=== PATIENT | male | born 1945 | race Caucasian/White ===

== ENCOUNTER 2017-10-08 07:01 | Day surgery (SDC) | payer MEDICARE ==
[~2017-10-08] VITALS: Ht 175.3 cm; Wt 81.6 kg
[~2017-10-08 07:01] MED LIST: AMLO5 PO; ASPI81CH; ASPI81CH PO; ASPI81EC PO; CHOL10002 PO; FISH1000 PO; GLUCOSAMINE CH1 EAC1 PO; HYDACE5325 PO; LISI20 PO; LISI5; LOVA20 PO; METF500 PO; MULVITMINF PO; Multiple Vitam1 EAC1 PO; POTA10T; POTASSIUM GLUCO90 MG PO; POTCHL20ER PO; POTCIT5 PO; RED YEAST RICE600 MG PO; RXHYD5325 PO; STATIN PO; TRAM50 PO; [UNRECOGNIZED DRUG - OTHER] PO
[2017-10-08] MEDS ORDERED: TRAM50 PO (16:54)
== END 2017-10-08 18:30 | disposition home or self-care (01) ==
LOC: ORSCMMR 07:01 → ORD 11:00 → SURS 16:06 → ORSCMMR 18:30
PROVIDERS: Orthopaedic Surgery
PROC: 0SB20ZZ Excision of Lumbar Vertebral Disc, Open Approach (ICD-10-PCS; principal; 2017-10-08 11:15)
PROC: 01NB0ZZ Release Lumbar Nerve, Open Approach (ICD-10-PCS; principal; 2017-10-08 11:15)
DX: M51.26 Other intervertebral disc displacement, lumbar region (principal); M47.26 Other spondylosis with radiculopathy, lumbar region; I10 Essential (primary) hypertension; E11.9 Type 2 diabetes mellitus without complications; E03.9 Hypothyroidism, unspecified; E78.00 Pure hypercholesterolemia, unspecified; F17.210 Nicotine dependence, cigarettes, uncomplicated; Z79.899 Other long term (current) drug therapy
CPT/HCPCS: 82947; 88304; J0171; J0690; J1100; J1170; J2250; J2405; J2710; J3010; J3370; J7120

== ENCOUNTER 2018-06-04 09:14 | Emergency (ER) | payer MEDICARE ==
[~2018-06-04] VITALS: Ht 175.3 cm; Wt 81.7 kg
[~2018-06-04 09:14] MED LIST changes: +METF500C
[2018-06-04 09:55] LABS: BASOPHILS ABSOLUTE AUTO 0.07 K/mm3 (0.00-0.23); BASOPHILS PERCENT AUTO 1 % (0-2); EOSINOPHILS ABSOLUTE AUTO 0.49 K/mm3 (0.00-0.68); EOSINOPHILS PERCENT AUTO 6 % (0-6); Hematocrit 43.1 % (37.0-53.0); Hemoglobin 14.5 g/dL (13.5-17.5); IMMATURE GRAN ABSOLUTE AUTO 0.02 K/mm3 (0.00-0.10); IMMATURE GRAN PERCENT AUTO 0 % (0-1); LYMPHOCYTES ABSOLUTE AUTO 1.93 K/mm3 (0.84-5.20); LYMPHOCYTES PERCENT AUTO 23 % (21-46); MONOCYTES ABSOLUTE AUTO 0.92 K/mm3 (0.16-1.47); MONOCYTES PERCENT AUTO 11 % (4-13); Mean Corpuscular HGB 31.7 pg (26.0-34.0); Mean Corpuscular HGB Conc 33.6 g/dL (31.5-36.5); Mean Corpuscular Volume 94 fL (80-100); NEUTROPHILS ABSOLUTE AUTO 4.96 K/mm3 (1.96-9.15); NEUTROPHILS PERCENT AUTO 59 % (41-73); Platelet Count 291 K/mm3 (150-400); RDW Coefficient Variation 13.3 % (11.7-14.2); RDW Standard Deviation 46.5 fL (35.1-46.3); Red Blood Cell Count 4.57 M/mm3 (4.30-5.90); White Blood Cell Count 8.39 K/mm3 (4.00-11.30)
[2018-06-04 10:15] LABS: Alanine Aminotransfer (ALT/SGP 33 U/L (12-78); Albumin, Blood 3.9 g/dL (3.4-5.0); Alk Phos 68 U/L (50-136); Anion Gap 9 mmol/L (6-16); Aspartate Aminotrans (AST/SGOT 18 U/L (12-37); Bilirubin, Total 0.3 mg/dL (0.1-1.0); Blood Urea Nitrogen 21 mg/dL (8-24); Bun/Creatinine Ratio 27.2 (12.0-20.0); CO2, Blood 26 mmol/L (21-32); Calcium, Blood 8.9 mg/dL (8.5-10.1); Chloride, Blood 102 mmol/L (98-108); Creatinine, Blood 0.77 mg/dL (0.60-1.20); Globulin, Blood 3.8 g/dL (2.2-4.0); Glomerular Filtration Rate >60 (60-); Glucose, Blood 154 mg/dL (70-99); Potassium, Blood 4.1 mmol/L (3.5-5.5); Sodium, Blood 137 mmol/L (136-145); Total Protein, Blood 7.7 g/dL (6.4-8.2); Troponin I <0.015 ng/mL (0.000-0.040)
[2018-07-11] MEDS ORDERED: Centrum Silver1 EAC1 (14:00)
[2018-07-11] MEDS ORDERED: METO25ER (14:01)
== END 2018-06-04 11:18 | disposition left against medical advice (07) ==
LOC: ER 09:14
PROVIDERS: Emergency Medicine
DX: Z53.21 Procedure and treatment not carried out due to patient leaving prior to being seen by health care provider (principal)
CPT/HCPCS: 36415; 71046; 80053; 84484; 85025; 93005; 93010

== ENCOUNTER 2018-07-12 09:26 | Day surgery (SDC) | payer MEDICARE ==
[~2018-07-12 09:26] MED LIST changes: +Centrum Silver1 EAC1; +METO25ER
--- NOTE | 2018-07-12 15:15 | NUR ---
2 CC AIR REMOVED FROM TR BAND AFTER DISCUSSION WITH DR. ELDER. (PT LIVES AN HOUR AWAY AND WANTS TO GET HOME BEFORE DARK.) ADDITIONAL AIR REMOVED FROM BAND. NO BLEEDING AT SITE. PT IS DRESSED FOR DISCHARGE AFTER AMBULATING TO BATHROOM.
--- NOTE | 2018-07-12 15:50 | NUR ---
DISCHARGE INSTRUCTIONS GIVEN WITH VERBAL AND WRITTEN UNDERSTANDING.
--- NOTE | 2018-07-12 16:00 | NUR ---
TR BAND REMOVED. NO BLEEDING AT SITE.SITE CLEANED, CLOTH DOTH, IMMOBILIZER AND SLING APPLIED.
--- NOTE | 2018-07-12 16:15 | NUR ---
DISCHARGED HOME VIA WHEELCHAIR. DRIVING. CD/DISCHARGE INSTRUCTIONS WITH PATIENT. CD SENT VIA MAIL TO [facility]. WILL GO OUT 05/15/19.
== END 2018-07-12 16:34 | disposition home or self-care (01) ==
LOC: MHTC 09:26
DX: I25.10 Atherosclerotic heart disease of native coronary artery without angina pectoris (principal); R00.2 Palpitations; R93.1 Abnormal findings on diagnostic imaging of heart and coronary circulation; R94.31 Abnormal electrocardiogram [ECG] [EKG]; E78.5 Hyperlipidemia, unspecified; E11.9 Type 2 diabetes mellitus without complications; I10 Essential (primary) hypertension; M19.90 Unspecified osteoarthritis, unspecified site; Z79.84 Long term (current) use of oral hypoglycemic drugs; Z79.82 Long term (current) use of aspirin; F17.210 Nicotine dependence, cigarettes, uncomplicated
CPT/HCPCS: 85347; 92978; 93454; 99152; 99153; C1753; C1769; C1887; C1894; J1644; J2250; J3010; J7030; Q9967

== ENCOUNTER 2020-07-12 10:26 | Emergency (ER) | payer MEDICARE ==
[~2020-07-12] VITALS: Ht 175.3 cm; Wt 90.7 kg
[2020-07-12 11:57] LABS: BASOPHILS ABSOLUTE AUTO 0.07 K/mm3 (0.00-0.23); BASOPHILS PERCENT AUTO 1 % (0-2); EOSINOPHILS ABSOLUTE AUTO 0.71 K/mm3 (0.00-0.68); EOSINOPHILS PERCENT AUTO 7 % (0-6); Hematocrit 42.6 % (37.0-53.0); Hemoglobin 14.5 g/dL (13.5-17.5); IMMATURE GRAN ABSOLUTE AUTO 0.02 K/mm3 (0.00-0.10); IMMATURE GRAN PERCENT AUTO 0 % (0-1); LYMPHOCYTES ABSOLUTE AUTO 1.77 K/mm3 (0.84-5.20); LYMPHOCYTES PERCENT AUTO 18 % (21-46); MONOCYTES ABSOLUTE AUTO 1.12 K/mm3 (0.16-1.47); MONOCYTES PERCENT AUTO 12 % (4-13); Mean Corpuscular HGB 30.9 pg (26.0-34.0); Mean Corpuscular Volume 91 fL (80-100); Mean Platelet Volume 8.7 fL (9.1-12.4); NEUTROPHILS ABSOLUTE AUTO 6.02 K/mm3 (1.96-9.15); NEUTROPHILS PERCENT AUTO 62 % (41-73); Platelet Count 326 K/mm3 (150-400); RDW Coefficient Variation 12.7 % (11.7-14.2); RDW Standard Deviation 42.8 fL (35.1-46.3); Red Blood Cell Count 4.69 M/mm3 (4.30-5.90); White Blood Cell Count 9.71 K/mm3 (4.00-11.30)
[2020-07-12 12:25] LABS: Alanine Aminotransfer (ALT/SGP 45 U/L (12-78); Albumin, Blood 3.5 g/dL (3.4-5.0); Albumin/Globulin Ratio 0.7 (0.8-1.8); Alk Phos 81 U/L (50-136); Anion Gap 6 mmol/L (6-16); Aspartate Aminotrans (AST/SGOT 34 U/L (12-37); Bilirubin, Total 0.4 mg/dL (0.1-1.0); Blood Urea Nitrogen 11 mg/dL (8-24); Bun/Creatinine Ratio 18.7 (12.0-20.0); CO2, Blood 27 mmol/L (21-32); Calcium, Blood 9.8 mg/dL (8.5-10.1); Chloride, Blood 100 mmol/L (98-108); Creatinine, Blood 0.59 mg/dL (0.60-1.20); Glomerular Filtration Rate >60 (60-); Glucose, Blood 112 mg/dL (70-99); Potassium, Blood 4.7 mmol/L (3.5-5.5); Sodium, Blood 133 mmol/L (136-145); Total Protein, Blood 8.5 g/dL (6.4-8.2)
[2020-07-12] MEDS ORDERED: COLCHICINE0.6 MG PO (14:29)
[2020-07-12] MEDS ORDERED: INDO50 PO (14:29)
== END 2020-07-12 14:07 | disposition home or self-care (01) ==
LOC: ER 10:26
PROVIDERS: Physician Assistant
DX: M10.9 Gout, unspecified (principal); E11.9 Type 2 diabetes mellitus without complications; I10 Essential (primary) hypertension; E78.00 Pure hypercholesterolemia, unspecified; Z79.899 Other long term (current) drug therapy; Z79.84 Long term (current) use of oral hypoglycemic drugs; Z79.82 Long term (current) use of aspirin
CPT/HCPCS: 36415; 73110; 80053; 83605; 84550; 85025; 85651; 86141; 96374; 99283-25; A9270; J1885

== ENCOUNTER 2021-12-06 08:00 | Day surgery (SDC) | payer MEDICARE ==
[~2021-12-06] VITALS: Ht 175.3 cm; Wt 85.1 kg
[~2021-12-06 08:00] MED LIST changes: +COLCHICINE0.6 MG PO; +INDO50 PO
== END 2021-12-06 10:26 | disposition home or self-care (01) ==
LOC: ORSCSDS 08:00 → ORD 09:00 → ORSCMMR 09:00 → ORSCSDS 09:00
PROVIDERS: Internal Medicine Gastroenterology
PROC: 0DBN8ZX Excision of Sigmoid Colon, Via Natural or Artificial Opening Endoscopic, Diagnostic (ICD-10-PCS; principal; 2021-12-06 09:00)
DX: Z12.11 Encounter for screening for malignant neoplasm of colon (principal); Z86.010 Personal history of colon polyps; Z80.0 Family history of malignant neoplasm of digestive organs; D12.5 Benign neoplasm of sigmoid colon; K64.8 Other hemorrhoids; I25.10 Atherosclerotic heart disease of native coronary artery without angina pectoris; E78.00 Pure hypercholesterolemia, unspecified; Z79.899 Other long term (current) drug therapy; E11.9 Type 2 diabetes mellitus without complications; I10 Essential (primary) hypertension; Z79.84 Long term (current) use of oral hypoglycemic drugs; Z79.01 Long term (current) use of anticoagulants
CPT/HCPCS: 82947; 88305; J2250; J2704; J7120

== ENCOUNTER 2023-01-30 08:23 | Day surgery (SDC) | payer MEDICARE ==
[~2023-01-30] VITALS: Ht 175.3 cm; Wt 91.3 kg
[2023-01-30] MEDS ORDERED: ACTOS15 MG PO (08:54)
[2023-01-30] MEDS ORDERED: GLUCOTROL5 MG (08:55)
--- NOTE | 2023-01-30 09:11 | NUR ---
01/30/23 0911 Rika Dias IN AT 0856 CHATA IN AT [id number]
[2023-01-30 10:00] VITALS: BP 169/78
--- NOTE | 2023-01-30 10:14 | NUR ---
01/30/23 1014 Vijay Holt IV REMOVED. WNL. CANNULA INTACT. ALBA WELL.
== END 2023-01-30 10:24 | disposition home or self-care (01) ==
LOC: ORSCSDS 08:23
PROVIDERS: Student in an Organized Health Care Education/Training Program
PROC: 08RJ3JZ Replacement of Right Lens with Synthetic Substitute, Percutaneous Approach (ICD-10-PCS; principal; 2023-01-30 09:30)
DX: E11.36 Type 2 diabetes mellitus with diabetic cataract (principal); H25.11 Age-related nuclear cataract, right eye; Z96.1 Presence of intraocular lens; Z95.1 Presence of aortocoronary bypass graft; H35.372 Puckering of macula, left eye; H40.003 Preglaucoma, unspecified, bilateral; I25.10 Atherosclerotic heart disease of native coronary artery without angina pectoris; E03.9 Hypothyroidism, unspecified; I10 Essential (primary) hypertension; J44.9 Chronic obstructive pulmonary disease, unspecified; Z79.899 Other long term (current) drug therapy
CPT/HCPCS: 82947; J2250; J7040; V2632

== ENCOUNTER → 2023-05-23 | Outpatient (CLI) | payer MEDICARE ==
[~2023-05-23] MED LIST changes: +ACTOS15 MG PO; +GLUCOTROL5 MG
== END | disposition home or self-care (01) ==
LOC: LAB SHORT 14:27 → LAB 14:27
DX: E11.9 Type 2 diabetes mellitus without complications (principal)
CPT/HCPCS: 82043

== ENCOUNTER → 2024-08-23 | Outpatient (CLI) | payer MEDICARE ==
[2024-08-23 15:47] LABS: Albumin, Blood 3.1 g/dL (3.4-5.0); Albumin/Globulin Ratio 0.9 (0.8-1.8); Bilirubin, Total 0.5 mg/dL (0.1-1.0); Bun/Creatinine Ratio 23.7 (12.0-20.0); Creatinine, Blood 0.59 mg/dL (0.60-1.20); Globulin, Blood 3.4 g/dL (2.2-4.0); Total Protein, Blood 6.5 g/dL (6.4-8.2)
== END | disposition home or self-care (01) ==
LOC: LAB SHORT 13:00
PROVIDERS: Physician Assistant
DX: I50.9 Heart failure, unspecified (principal); L84 Corns and callosities; R60.9 Edema, unspecified
CPT/HCPCS: 80053; 83880

== ENCOUNTER 2024-08-25 17:14 | Inpatient (IN) | payer MEDICARE ==
[~2024-08-25] VITALS: Ht 180.3 cm; Wt 77.8 kg
[2024-08-25 17:48] LABS: BASOPHILS ABSOLUTE AUTO 0.03 K/mm3 (0.00-0.23); BASOPHILS PERCENT AUTO 0 % (0-2); EOSINOPHILS ABSOLUTE AUTO 0.18 K/mm3 (0.00-0.68); EOSINOPHILS PERCENT AUTO 2 % (0-6); Hematocrit 37.1 % (37.0-53.0); Hemoglobin 12.1 g/dL (13.5-17.5); IMMATURE GRAN ABSOLUTE AUTO 0.02 K/mm3 (0.00-0.10); IMMATURE GRAN PERCENT AUTO 0 % (0-1); LYMPHOCYTES ABSOLUTE AUTO 1.56 K/mm3 (0.84-5.20); LYMPHOCYTES PERCENT AUTO 17 % (21-46); MONOCYTES ABSOLUTE AUTO 1.27 K/mm3 (0.16-1.47); MONOCYTES PERCENT AUTO 14 % (4-13); Mean Corpuscular HGB 28.9 pg (26.0-34.0); Mean Corpuscular HGB Conc 32.6 g/dL (31.5-36.5); Mean Corpuscular Volume 89 fL (80-100); Mean Platelet Volume 9.7 fL (9.1-12.4); NEUTROPHILS ABSOLUTE AUTO 6.17 K/mm3 (1.96-9.15); NEUTROPHILS PERCENT AUTO 67 % (41-73); Platelet Count 312 K/mm3 (150-400); RDW Coefficient Variation 16.2 % (11.7-14.2); Red Blood Cell Count 4.18 M/mm3 (4.30-5.90); White Blood Cell Count 9.23 K/mm3 (4.00-11.30)
[2024-08-25 18:29] LABS: Albumin, Blood 3.1 g/dL (3.4-5.0); Albumin/Globulin Ratio 0.9 (0.8-1.8); Bilirubin, Total 0.6 mg/dL (0.1-1.0); Bun/Creatinine Ratio 23.2 (12.0-20.0); Calcium, Blood 8.5 mg/dL (8.5-10.1); Creatinine, Blood 0.69 mg/dL (0.60-1.20); Globulin, Blood 3.5 g/dL (2.2-4.0); Potassium, Blood 3.7 mmol/L (3.5-5.5); Total Protein, Blood 6.6 g/dL (6.4-8.2)
[2024-08-25] MEDS ORDERED: Furosemide 10 MG / ML 2ML Vial IV ONE (19:45)
[2024-08-25 20:29] LABS: Influenza A, PCR NEGATIVE (NEGATIVE); Influenza B, PCR NEGATIVE (NEGATIVE); Resp Syncytial Virus, PCR NEGATIVE (NEGATIVE); SARS-Cov-2 (COVID-19) PCR, MMC NEGATIVE (NEGATIVE)
[2024-08-25 22:22] VITALS: BP 145/90
[2024-08-25] MEDS ORDERED: FLU VACC TS2024-25(6MOS UP)/PF 45 MCG/0.5 ML SYRINGE IM ONE (22:55)
[2024-08-25] MEDS ORDERED: Enoxaparin 40 MG/0.4 ML SYR SC SCH (23:00)
[2024-08-25] MEDS ORDERED: Clopidogrel Bisulfate 300 MG TABLET PO ONE (23:00)
[2024-08-25] MEDS ORDERED: Ondansetron HCl 2 MG / ML 2ML Vial IV PRN (23:00)
--- NOTE | 2024-08-25 23:00 | NUR ---
ASSUMED CARE OF PT AT 2300. PT RESTING IN BED COMFORTABLY. BED IN LOWEST POSITION. CALL LIGHT IN REACH.
[2024-08-25] MEDS ORDERED: FentaNYL Citrate 50 MCG/ML 2 ML Injection IV PRN (23:05)
[2024-08-25] MEDS ORDERED: Melatonin 3 MG Tab PO PRN (23:15)
[2024-08-26] VITALS (12 sets, daily range): BP systolic 119–151; BP diastolic 72–106
[2024-08-26] MEDS ORDERED: Aspirin 81 MG Chew PO SCH
[2024-08-26] MEDS ORDERED: Atorvastatin 40 MG Tab PO SCH
[2024-08-26 00:37] LABS: Anti-Xa UFH, PHA Monitoring <0.10 IU/mL; International Normalized Ratio 1.07; Prothrombin Time Results 11.4 Sec (9.7-11.5)
[2024-08-26] MEDS ORDERED: Heparin Sodium,Porcine/0.5 NS 500 ML IV SCH ×2 (01:00→21:25)
[2024-08-26] MEDS ORDERED: Heparin Sodium 5000 Units/ML 1ML MDV IV ONE (01:00)
--- NOTE | 2024-08-26 01:05 | NUR ---
08/26/24 Dr. Yuen notified of troponin of 122 up from 114. Patient had not wanted to take the plavix loading dose or the heparin gtt. He had some bleeding problems after coumadin 30 yrs ago, after cutting himself, he had a bleeding issue. Dr. Yuen states he will evaluate the patients chart and change any orders. Will do third troponin to see if they stay flat. Pt nurse notified.
--- NOTE | 2024-08-26 06:14 | NUR ---
PHYSICIAN ASSISTANT SUMMARY: PT A&O X4. PT ADMITTED FOR NEW ONSET OF CHF. FULL CODE. MAKES NEEDS KNOWN. NO ACUTE EVENTS SINCE ADMISSION TO FLOOR. O2 AT 3LPM VIA NC, RA AT BASELINE. BLE EDEMA PRESENT, LEGS ELEVATED. PT REFUSED HEPARIN, PLAVIX, ATORVASTATIN AND ASA FROM SHRINK PIT SUPERVISOR. DR. EGAN NOTIFIED BY SHRINK PIT SUPERVISOR. SEE PREVIOUS NURSING NOTE. TELE IN PLACE; SR IN 80'S. DENIES CHEST PAIN /PRESSURE. CALL LIGHT IN REACH. RESTING IN RECLINER. CARES ONGOING ORDERED.
--- NOTE | 2024-08-26 07:54 | NUR ---
ASSUMPTION OF CARE: ASSUMED CARE OF PATIENT. SITTING UP IN CHAIR DURING SHIFT CHANGE REPORT. 3LPM/NC (RA AT [facility]) TELE SINUS c PVCs, PACs AND BBB @ 77 UPON CHART REVIEW PER LAST STRIP UPLOAD. CALL LIGHT WITHIN REACH. NO ACUTE NEEDS.
[2024-08-26] MEDS ORDERED: Furosemide 10 MG/ML 4ML Vial IV ONE (08:45)
[2024-08-26] MEDS ORDERED: Furosemide 10 MG/ML 4ML Vial IV SCH ×2 (09:00→18:00)
[2024-08-26] MEDS ORDERED: Clopidogrel Bisulfate 75 MG Tab PO SCH (09:00)
[2024-08-26 09:27] LABS: BASOPHILS ABSOLUTE AUTO 0.02 K/mm3 (0.00-0.23); BASOPHILS PERCENT AUTO 0 % (0-2); EOSINOPHILS ABSOLUTE AUTO 0.13 K/mm3 (0.00-0.68); EOSINOPHILS PERCENT AUTO 2 % (0-6); Hematocrit 39.2 % (37.0-53.0); Hemoglobin 12.7 g/dL (13.5-17.5); IMMATURE GRAN ABSOLUTE AUTO 0.02 K/mm3 (0.00-0.10); IMMATURE GRAN PERCENT AUTO 0 % (0-1); LYMPHOCYTES ABSOLUTE AUTO 1.01 K/mm3 (0.84-5.20); LYMPHOCYTES PERCENT AUTO 14 % (21-46); MONOCYTES ABSOLUTE AUTO 0.62 K/mm3 (0.16-1.47); MONOCYTES PERCENT AUTO 9 % (4-13); Mean Corpuscular HGB 28.7 pg (26.0-34.0); Mean Corpuscular HGB Conc 32.4 g/dL (31.5-36.5); Mean Corpuscular Volume 89 fL (80-100); Mean Platelet Volume 9.6 fL (9.1-12.4); NEUTROPHILS ABSOLUTE AUTO 5.36 K/mm3 (1.96-9.15); NEUTROPHILS PERCENT AUTO 75 % (41-73); Platelet Count 306 K/mm3 (150-400); RDW Coefficient Variation 15.9 % (11.7-14.2); RDW Standard Deviation 51.8 fL (35.1-46.3); Red Blood Cell Count 4.43 M/mm3 (4.30-5.90); White Blood Cell Count 7.16 K/mm3 (4.00-11.30)
[2024-08-26 09:40] LABS: Albumin, Blood 3.1 g/dL (3.4-5.0); Albumin/Globulin Ratio 0.9 (0.8-1.8); Bilirubin, Total 0.6 mg/dL (0.1-1.0); Bun/Creatinine Ratio 21.6 (12.0-20.0); Creatinine, Blood 0.56 mg/dL (0.60-1.20); Globulin, Blood 3.5 g/dL (2.2-4.0); Potassium, Blood 3.2 mmol/L (3.5-5.5); Total Protein, Blood 6.6 g/dL (6.4-8.2)
[2024-08-26] MEDS ORDERED: Potassium Chloride 20 MEQ TabCR PO ONE (11:00)
[2024-08-26] MEDS ORDERED: NS 1,000 ML IV ONE ×2 (13:10→13:35)
[2024-08-26] MEDS ORDERED: NS 250 ML IV ONE (13:10)
[2024-08-26] MEDS ORDERED: Heparin Sodium 1000 Units/ML 10ML MDV ONE ×2 (13:10→13:35)
--- NOTE | 2024-08-26 13:24 | NUR ---
CALL FROM PATIENT'S SISTER, RADHA; PT GRANTS PERMISSION TO SPEAK WITH PATIENT. PROVIDED UPDATE REGARDING PATIENT AND LET HER KNOW HE IS CURRENTLY HEADED TO THE [facility] WORK[facility] AND WILL TRANSFER TO [facility] ONCE FINISHED WITH PROCEDURE.
[2024-08-26] MEDS ORDERED: FentaNYL Citrate 50 MCG/ML 2 ML Injection ONE (13:35)
[2024-08-26] MEDS ORDERED: Midazolam HCl 1MG / ML 2ML Vial ONE (13:35)
[2024-08-26 13:58] LABS: Magnesium, Blood 2.1 mg/dL (1.6-2.4)
[2024-08-26 14:00] LABS: Albumin/Globulin Ratio 0.8 (0.8-1.8); Bilirubin, Total 0.5 mg/dL (0.1-1.0); Bun/Creatinine Ratio 22.3 (12.0-20.0); C-Reactive Protein, High Sens. 10.6 mg/dL (0.000-3.000); Calcium, Blood 8.3 mg/dL (8.5-10.1); Creatinine, Blood 0.63 mg/dL (0.60-1.20); Globulin, Blood 3.6 g/dL (2.2-4.0); Potassium, Blood 3.5 mmol/L (3.5-5.5); Total Protein, Blood 6.6 g/dL (6.4-8.2)
--- NOTE | 2024-08-26 14:10 | NUR ---
END OF SHIFT SUMMARY: A&Ox4. PLEASANT AND COOPERATIVE WITH CARE. CALLS APPROPRIATELY AND IS ABLE TO ADVOCATE NEEDS EFFECTIVELY. CONTINENT OF BOWEL AND BLADDER. URINARY URGENCY AND FREQUENCY SECONDARY TO LARGE IV DOSES OF FUROSEMIDE. LBM TODAY PER PATIENT REPORT. AMBULATES INDEPENDENTLY AT BASELINE; SBA FOR LINE MANAGEMENT AND WEAKNESS AND PAIN R/T EDEMA. MEDS WHOLE c FLUIDS. NO C/O PAIN OR DISCOMFORT. DECLINED HEPARIN GTTS AND AM MEDICATIONS; EVENTUALLY TOOK ASA c CK ENCOURAGEMENT PRIOR TO LEAVING FOR ANGIOGRAM. PATIENT LEFT FLOOR AT 1310 FOR INJECTION MOLDING MACHINE OPERATOR. REPORT TO DENISE IN PCU. GIANNA BOND, TOOK BELONGINGS TO PCU03 FOR PATIENT.
--- NOTE | 2024-08-26 15:37 | NUR ---
ARRIVAL NOTE: PATIENT ARRIVES TO UNIT. DENIED ANY CHEST PAIN/PRESSURE. STATED HE FELT A LITTLE SHORT OF BREATH, O2 SAT AT 90% OXYGEN WAS PLACED VIA NASAL CANNULA ANS SATURATION ABOVE 92%.
[2024-08-26] MEDS ORDERED: Insulin Human Lispro 100 Units/ML 3ML Syringe SC SCH (16:30)
--- NOTE | 2024-08-26 17:13 | NUR ---
SHIFT SUMMARY: PATIENT IS ALERT AND ORIENTED X4 & AT TIME COOPERATIVE WITH HIS CARE. IS ON TELE SHOWING SINUS WITH PVC'S IN THE 80'S. SATTING >92% ON 1 LITER VIA NASAL CANNULA. PATIENT CONTINUES TO LAY FLAT AND WILL NEED TO LAY FLAT UNTIL 20:30 AND IS AWARE. A DIET WAS ADDED & PATIENT IS ACHS BLOOD SUGAR CHECKS. PATIENT WAS NOTIFIED OF NEEDING TO LAY FLAT & WHAT THE PROCEDURE ENTAILED TO RESTART THE HEPARIN DRIP ONCE THE GROIN SITE WAS RECOVERED. THE RIGHT GROIN & RIGHT BRACIAL SITE ARE BOTH SOFT, NONTENDER & NO HEMATOMA OR BLEEDING. VITAL SIGNS STABLE. PATIENT DENIED CHEST PAIN BUT DID ENDORSE FEELING SHORT OF BREATH SEE PREVIOUS NOTE FOR MORE INFORMATION. SISTER WAS UPDATED AND STATED SHE WOULD BE CALLING AGAIN LATER TONIGHT, IS TO ARRIVE TOMORROW. PATIENT IS LAYING FLAT, WITH CALL LIGHT IN REACH & BED IN LOWEST POSITION, STATING NOTHING IS NEEDED AT THIS TIME.
[2024-08-26] MEDS ORDERED: Insulin Glargine-Yfgn 100 Unit/mL 3 ML SYR SC SCH (21:00)
[2024-08-26] MEDS ORDERED: Dose Adjust by Pharmacy XX STA (21:21)
[2024-08-26] MEDS ORDERED: TraZODone HCl 50 MG Tab PO ONE (21:45)
--- NOTE | 2024-08-27 03:10 | NUR ---
SHIFT SUMMARY NO ACUTE CHANGES OVERNIGHT. PT A&OX4. VSS ON RA WITH 1L NC NOC >92%. NO REPORTS OF SOB. NO CP OR PRESSURE NOTED THROUGHOUT SHIFT. R GROIN AND R BRACHIAL SITE REMAIN C/D/I WITH NO ISSUES. NO PAIN NOTED. HEPARIN GTT RESTARTED @ 0. PT WAS ABLE TO EAT DINNER BEFORE BED. PT REQUESTED TRAZODONE FOR SLEEP. MD ORDERED AND GIVEN WITH LITTLE EFFECT. PT RESTING COMFORTABLY WITH NO FURTHER QUESTIONS OR CONCERNS AT THIS TIME. REPORT GIVEN TO KRYSTLE GERONIMO FOR FURTHER CARE.
[2024-08-27] MEDS ORDERED: Albuterol 2.5 MG/3 ML VIAL INH PRN (04:20)
[2024-08-27 04:27] VITALS: BP 146/91
[2024-08-27 04:50] LABS: Bun/Creatinine Ratio 23.9 (12.0-20.0); Creatinine, Blood 0.54 mg/dL (0.60-1.20); Magnesium, Blood 1.7 mg/dL (1.6-2.4); Potassium, Blood 3.3 mmol/L (3.5-5.5)
[2024-08-27] MEDS ORDERED: Dose Adjust by Pharmacy XX STA ×2 (05:42→11:37)
[2024-08-27] MEDS ORDERED: Potassium Chloride 20 MEQ TabCR PO ONE ×2 (05:55→13:00)
--- NOTE | 2024-08-27 06:02 | NUR ---
SHIFT SUMMARY/ASSUMPTION OF CARE NOTE ASSUMED CARE FROM [place] TECHNICIANJUANPABLO CALIX AT 0240. PT A/Ox4 AND COOPERATIVE WITH CARE. ANSWERS QUESTIONS APPROPRIATELY AND ABLE TO MAKE HIS NEEDS KNOWN. CARDIAC, REMAINS IN SR 80'S WITH NO REPORTS OF CP, PRESSURE OR DIZZINESS. DID HAVE A 2 SEC PAUSE PER STROBOROMA OPERATOR, BUT PT WAS ASYMPTOMATIC. RESPIRATORY, MAINTAINS SPO2 >95% ON RA. DID NEED 1-2NC WHEN ASLEEP. REPORTED SOME SOB LATER IN THE SHIFT, LS TIGHT WITH SOME EXPIRATORY WHEEZES NOTED. MD HANDLEY NOTIFIED WITH BD VAN INITIATED WITH GOOD EFFECT. GI/, ABLE TO USE URINAL AT BEDSIDE. DENIES N/V/D OR ABD TENDERNESS. RIGHT BRACHIAL AND RIGHT GROIN SITES FROM ANGIO 08/26/24 WNL, DENIES ANY SITE TENDERNESS. HEPARIN gtt IS BEING MANAGED BY PHARMACY AND INFUSING PER EMAR T/O THE NIGHT. NO NEW ORDERS AT THIS TIME, WILL REPORT TO ONCOMING RN. KATARINA TIMMONS OF THIS NOTE.
[2024-08-27] MEDS ORDERED: Potassium Chloride 20 MEQ/15 ML UDC PO STA (07:35)
[2024-08-27 08:22] VITALS: BP 129/94
[2024-08-27] MEDS ORDERED: Losartan Potassium 25 MG Tab PO SCH (09:00)
[2024-08-27] MEDS ORDERED: Furosemide 10 MG/ML 4ML Vial IV SCH (09:00)
[2024-08-27] MEDS ORDERED: Empagliflozin 10 MG TAB PO SCH (09:00)
[2024-08-27] MEDS ORDERED: Metoprolol Succinate 25 MG TABCR PO SCH (09:00)
[2024-08-27 11:11] LABS: Hematocrit 37.7 % (37.0-53.0); Hemoglobin 12.6 g/dL (13.5-17.5); Mean Platelet Volume 9.8 fL (9.1-12.4); Platelet Count 317 K/mm3 (150-400)
[2024-08-27 11:21] VITALS: BP 111/71
[2024-08-27] MEDS ORDERED: Heparin Sodium 5000 Units/ML 1ML MDV IV ONE (11:40)
[2024-08-27 16:30] VITALS: BP 108/75
--- NOTE | 2024-08-27 18:49 | NUR ---
End of shift note. Pt has had a good day. Some restless noted, Pt continues to move from bed to chair multiple times. Pt has been reminded to call when he wants to move about the room. Some complaints SOB when ambulating. Pt reports that he recovers shortly after resting. Pt to meet with family to discuss plan of care and ideas about seeking additional treatment. Sounds like Pt may be agreeable to transfer for high risk PCI. Good output from lasix this shift. BM today Pt is able to make needs known, call light is within reach.
[2024-08-27 20:13] VITALS: BP 117/79
[2024-08-28] VITALS (9 sets, daily range): BP systolic 97–160; BP diastolic 65–96
--- NOTE | 2024-08-28 04:57 | NUR ---
PT DECLINING TO WEAR PULSE OX AND TELE AT THIS TIME. PT EDUCATED ON RISK AND BENEFITS. VERBALIZED UNDERSTANDING. ALERT AND ORIENTED.
--- NOTE | 2024-08-28 04:59 | NUR ---
SHIFT SUMMARY 2500ML URINE OUT AFTER LASIX. HEPARIN GTT OFF STILL FROM YESTERDAYS BLEEDING. NO NEW SIGNS OF BLEEDING AT THIS TIME.
[2024-08-28 06:12] LABS: Calcium, Blood 8.2 mg/dL (8.5-10.1); Creatinine, Blood 0.67 mg/dL (0.60-1.20); Magnesium, Blood 1.9 mg/dL (1.6-2.4); Potassium, Blood 3.7 mmol/L (3.5-5.5)
[2024-08-28] MEDS ORDERED: Spironolactone 12.5 MG TAB PO SCH (09:00)
[2024-08-28] MEDS ORDERED: Aspirin 81 MG Chew PO SCH (09:00)
--- NOTE | 2024-08-28 10:30 | NUR ---
AM NOTE: PATIENT ALERT AND ORIENTED X4. FORGETFUL AT TIMES. PERRLA. DENIES NUMBNESS/TINGLING. UP WITH 4WW AND SBA. ABLE TO TURN SELF IN BED. UP TO CHAIR FOR MEALS. WALKS AROUND UNIT WITH STAFF AND PROPER NONSKID SOCKS. TELE SHOWING SR WITH HR 70-80'S. DENIES CHEST PAIN/PRESSURE/PALPITATIONS. RIGHT BRACHIAL AND GROIN SITES POST ANGIO. DRESSINGS C/D/I. SOFT AND NONTENDER. BLE EDEMA, PER PATIENT IMPROVING. PPP. DR. CARPENTER BY THIS MORNING TO BEDSIDE, THIS RN PRESENT. PLAN FOR POSSIBLE DC TOMORROW WITH OUTPATIENT PROCEDURE IN FUTURE. ORDERS TO REASSES BLOOD PRESSURE AT 1500, SEE NURSE NOTIFY ORDER. ON ROOM AIR SATING ABOVE 95%. DENIES SOB/COUGH. EVEN AND UNLABORED RESPIRATIONS. LUNG SOUNDS CLEAR. BOWEL TONES PRESENT. TOLERATING PO DIET. DENIES ABDOMINAL PAIN/NAUSEA. ATTENDS IN PLACE. SHOWER COMPLETED THIS AM. PATIENT AGGREEABLE TO WEAR TELE POST SHOWER, REFUSING PRIOR THIS MORNING. ACHS BLOOD SUGARS. REFUSING CHAIR ALARM WHEN UP. THIS RN AND MORNING NEWS ANCHOR EDUCATED PATIENT ON FALL RISK AND SAFETY. PATIENT CONTINUES TO REFUSE CHAIR ALARM. CALL LIGHT IN REACH. SON AT BEDSIDE.
[2024-08-28] MEDS ORDERED: Potassium Chloride 20 MEQ TabCR PO ONE (13:00)
[2024-08-28] MEDS ORDERED: Losartan Potassium 25 MG Tab PO ONE (13:30)
[2024-08-28] MEDS ORDERED: Furosemide 10 MG / ML 2ML Vial IV ONE (14:00)
--- NOTE | 2024-08-28 15:15 | NUR ---
PATIENT BLOOD PRESSURE TAKEN AT [address]PORT[address] BACK [address] DR[address] CARPENTER. NO ADDITIONAL DOSE OF LASIX AT THIS TIME. CALL LIGHT IN REACH. FAMILY AT BEDSIDE. DENIES NEEDS.
--- NOTE | 2024-08-28 18:13 | NUR ---
SHIFT SUMMARY: NO ACUTE CHANGES. SEE PREVIOUS NOTES FOR UPDATES. PATIENT REMAINS ALERT AND ORIENTED. DENIES PAINS. UP WITH SBA AROUND ROOM AND UNIT. USING CALL LIGHT FOR NEEDS. FALL RISK EDUCATION REINFORCED. TELE SHOWING SR WITH HR 70'S. SBP 110'S THIS EVENING. CONTINUES TO DENY CHEST PAIN/PRESSURE/PALPITATIONS. RIGHT BRACHIAL AND GROIN SITE REMAIN C/D/I, SOFT AND NONTENDER. ON ROOM AIR SATING ABOVE 95%. TOLERATING PO DIET. DENIES ABDOMINAL PAIN/NAUSEA. USING URINAL TO VOID. SHOWER COMPLETED THIS SHIFT. FAMILY AT BEDSIDE THROUGHOUT SHIFT AND UPDATED BY THIS RN, DR. CARPENTER AND DR. SCHMIDT. CALL LIGHT IN REACH. PATIENT DENIES NEEDS AT THIS TIME.
--- NOTE | 2024-08-28 21:31 | NUR ---
AT SHIFT ONSET PT PLEASANT, COOPERATIVE, MADE NEEDS KNOWN. BED ALARM LEFT ACTIVE FOR SAFETY D/T HIGH FALL RISK AND RECENT GLFs AT HOME. NOT LONG AFTER, BED ALARM WAS ACTIVATED WHEN PT STOOD UP OUT OF BED WITHOUT ASSISTANCE AND WITHOUT CALLING FOR ASSISTANCE. WHEN STAFF ENTERED ROOM TO ASSIST PATIENT HE WAS VERY AGITATED, YELLING AT STAFF DEMANDING FOR BED ALARM TO BE DEACTIVATED AND THAT IF HE "AM GOING TO FALL IT IS HIS PROBLEM". DEMANDED THAT BED ALARM BE TURNED OFF. EDUCATED PT ON INDICATION FOR BED ALARM D/T HIGH FALL RISK AND ENCOURAGED CALLING FOR ASSISTANCE BEFORE GETTING OUT OF BED TO NOT HAVE TO HEAR ALARM GO OFF. PT ESCALATED, DEMANDING TO SPEAK WITH OPERATIONAL REVIEW SERGEANT REGARDING ISSUE. AFTER DISCUSSION WITH OPERATIONAL REVIEW SERGEANT JOSE L PT WAS AGREEABLE TO SIGNING REFUSAL OF MEDICAL TREATMENT FORM. RESIDENT DR. HANDLEY CALLED AND NOTIFIED OF ISSUE. DR. HANDLEY CAME TO BEDSIDE TO DISCUSS WITH PATIENT AND HAVE HIM SIGN FORM. SIGNED FORM IN PATIENT CHART. BED ALARM NOT ACTIVE AT THIS TIME.
[2024-08-29 04:23] VITALS: BP 138/89
--- NOTE | 2024-08-29 04:41 | NUR ---
SHIFT SUMMARY. SHIFT HAS BEEN UNREMARKABLE, NO ACUTE CHANGES. PT AOX4, MOSTLY COOPERATIVE WITH CARE, ABLE TO MAKE NEEDS KNOWN. HAS BEEN ABLE TO REST COMFORTABLY THROUGHOUT MOST OF SHIFT. PT HAS NOT HAD BED ALARM ACTIVE THROUGHOUT SHIFT DESPITE FALL RISK, SEE PREVIOUS NOTE FOR DETAILS. HAS MOSTLY CALLED APPROPRIATELY. VITALS STABLE, HAS BEEN RUNNING SINUS ON TELE, NO PAIN REPORTED THROUGHOUT SHIFT. PT CONTINENT, USES URINAL INDEPENDENTLY. BED LOCKED IN LOWEST POSITION. CALL LIGHT LEFT WITHIN REACH. CONTINUING TO MONITOR.
[2024-08-29 05:01] LABS: Albumin/Globulin Ratio 0.9 (0.8-1.8); Bilirubin, Direct 0.2 mg/dL (0.0-0.3); Bilirubin, Indirect 0.4 mg/dL (0.1-0.7); Bilirubin, Total 0.6 mg/dL (0.1-1.0); Bun/Creatinine Ratio 28.6 (12.0-20.0); Calcium, Blood 8.3 mg/dL (8.5-10.1); Creatinine, Blood 0.77 mg/dL (0.60-1.20); Globulin, Blood 3.2 g/dL (2.2-4.0); Potassium, Blood 3.9 mmol/L (3.5-5.5); Total Protein, Blood 6.2 g/dL (6.4-8.2)
[2024-08-29 07:47] VITALS: BP 121/70
[2024-08-29] MEDS ORDERED: Losartan Potassium 25 MG Tab PO SCH ×2 (09:00)
[2024-08-29] MEDS ORDERED: Torsemide 20 MG TAB PO SCH (09:00)
[2024-08-29] MEDS ORDERED: Atorvastatin 10 MG Tab PO SCH (09:00)
[2024-08-29 11:51] VITALS: BP 119/65
[2024-08-29] MEDS ORDERED: ATOR10 PO (12:07)
[2024-08-29] MEDS ORDERED: JARDIANCE10 MG PO (12:07)
[2024-08-29] MEDS ORDERED: LOSA25 PO (12:15)
[2024-08-29] MEDS ORDERED: METO25ER PO (12:15)
[2024-08-29] MEDS ORDERED: SOAANZ20 M1 PO (12:16)
[2024-08-29] MEDS ORDERED: SPIR25 PO (12:17)
--- NOTE | 2024-08-29 13:09 | NUR ---
discharge summary PT A&OX4. VSS. DENIES PAIN. TELEMETRY REMOVED. IV REMOVED. MEDICATIONS FAXED TO [facility] PER PT REQUEST. HARD SCRIPT FOR ALDACTONE (D/T [facility] ISSUES ADDING IT TO [facility]) GIVEN TO PT, PHOTO COPY IN CHART. [facility]OLOG[facility] CL[facility]IC CALLED AND NOTIFIED OF NEED FOR PT FOLLOW UP APPT. MEDICATION AND DISCHARGE INSTRUCTIONS REVIEWED WITH PT AND PT'S SON. PT DRESSED IN OWN CLOTHES AND WHEELED TO PRIVATE VEHICLE.
== END 2024-08-29 13:03 | disposition home or self-care (01) | DRG 280 ==
LOC: ER 17:14 → MEDS 20:02 → PCU 08-26 13:42
PROVIDERS: Emergency Medicine; Internal Medicine; Student in an Organized Health Care Education/Training Program; ADMIT Internal Medicine
PROC: B2111ZZ Fluoroscopy of Multiple Coronary Arteries using Low Osmolar Contrast (ICD-10-PCS; principal; 2024-08-26)
PROC: 4A023N8 Measurement of Cardiac Sampling and Pressure, Bilateral, Percutaneous Approach (ICD-10-PCS; 2024-08-26)
DX: I11.0 Hypertensive heart disease with heart failure (principal); I50.23 Acute on chronic systolic (congestive) heart failure; I21.A1 Myocardial infarction type 2; J96.01 Acute respiratory failure with hypoxia; F17.210 Nicotine dependence, cigarettes, uncomplicated; Z66 Do not resuscitate; Z51.5 Encounter for palliative care; I10 Essential (primary) hypertension; I25.10 Atherosclerotic heart disease of native coronary artery without angina pectoris; I35.0 Nonrheumatic aortic (valve) stenosis; I27.20 Pulmonary hypertension, unspecified; Z96.653 Presence of artificial knee joint, bilateral; Z96.641 Presence of right artificial hip joint; Z95.1 Presence of aortocoronary bypass graft; Z88.5 Allergy status to narcotic agent; E78.5 Hyperlipidemia, unspecified; Z79.82 Long term (current) use of aspirin; Z79.84 Long term (current) use of oral hypoglycemic drugs; Z79.899 Other long term (current) drug therapy; I25.2 Old myocardial infarction; E11.65 Type 2 diabetes mellitus with hyperglycemia; E87.6 Hypokalemia; Z98.42 Cataract extraction status, left eye; Z98.890 Other specified postprocedural states; I50.9 Heart failure, unspecified; L84 Corns and callosities; R60.9 Edema, unspecified
CPT/HCPCS: 0241U; 36415; 71045; 76937; 80048; 80053; 80076; 82947; 83735; 83880; 84484; 85014; 85018; 85025; 85049; 85520; 85610; 86141; 93005; 93010; 93306; 93457; 94640; 94664; 94760; 94762; 99152; 99153; 99285-25; A9270; C1769; C1894; J1644; J1815; J1940; J2250; J3010; J7030; J7050; Q9967

== ENCOUNTER 2025-01-21 11:50 | Emergency (ER) | payer MEDICARE ==
[~2025-01-21] VITALS: Ht 175.3 cm; Wt 77.1 kg
[~2025-01-21 11:50] MED LIST changes: +ATOR10 PO; +JARDIANCE10 MG PO; +LOSA25 PO; +METO25ER PO; +SOAANZ20 M1 PO; +SPIR25 PO
[2025-01-21] MEDS ORDERED: Ipratropium/Albuterol SulF 2.5-0.5MG/3 ML Amp INH PRN (12:25)
[2025-01-21 12:59] LABS: BASOPHILS ABSOLUTE AUTO 0.04 K/mm3 (0.00-0.23); BASOPHILS PERCENT AUTO 1 % (0-2); EOSINOPHILS ABSOLUTE AUTO 0.14 K/mm3 (0.00-0.68); EOSINOPHILS PERCENT AUTO 2 % (0-6); Hematocrit 37.9 % (37.0-53.0); Hemoglobin 12.4 g/dL (13.5-17.5); IMMATURE GRAN ABSOLUTE AUTO 0.01 K/mm3 (0.00-0.10); IMMATURE GRAN PERCENT AUTO 0 % (0-1); LYMPHOCYTES ABSOLUTE AUTO 1.22 K/mm3 (0.84-5.20); LYMPHOCYTES PERCENT AUTO 19 % (21-46); MONOCYTES ABSOLUTE AUTO 0.73 K/mm3 (0.16-1.47); MONOCYTES PERCENT AUTO 11 % (4-13); Mean Corpuscular HGB Conc 32.7 g/dL (31.5-36.5); Mean Corpuscular Volume 89 fL (80-100); NEUTROPHILS ABSOLUTE AUTO 4.34 K/mm3 (1.96-9.15); NEUTROPHILS PERCENT AUTO 67 % (41-73); NRBC ABSOLUTE 0.00 K/mm3 (0.00-0.02); NRBC Auto 0.0 /100 WBC (0.0-0.2); Platelet Count 212 K/mm3 (150-400); RDW Coefficient Variation 18.1 % (11.7-14.2); RDW Standard Deviation 58.2 fL (35.1-46.3)
[2025-01-21 13:25] LABS: Alanine Aminotransfer (ALT/SGP 72.0 U/L (12-78); Albumin, Blood 2.8 g/dL (3.4-5.0); Albumin/Globulin Ratio 0.8 (0.8-1.8); Anion Gap 8.0 mmol/L (3-11); Aspartate Aminotrans (AST/SGOT 42.0 U/L (12-37); Bilirubin, Total 0.9 mg/dL (0.1-1.0); Blood Urea Nitrogen 24.0 mg/dL (8-24); CO2, Blood 30.0 mmol/L (21-32); Calcium, Blood 8.7 mg/dL (8.5-10.1); Chloride, Blood 104.0 mmol/L (98-108); Creatinine, Blood 0.82 mg/dL (0.60-1.20); Globulin, Blood 3.4 g/dL (2.2-4.0); Glucose, Blood 265.0 mg/dL (70-99); Potassium, Blood 3.2 mmol/L (3.5-5.5); Sodium, Blood 139.0 mmol/L (136-145); Total Protein, Blood 6.2 g/dL (6.4-8.2)
[2025-01-21] MEDS ORDERED: TORSE20 PO (17:03)
[2025-01-21 17:17] VITALS: BP 131/88
== END 2025-01-21 17:20 | disposition home or self-care (01) ==
LOC: ER 11:50
PROVIDERS: Emergency Medicine
DX: I11.0 Hypertensive heart disease with heart failure (principal); I50.9 Heart failure, unspecified; I25.10 Atherosclerotic heart disease of native coronary artery without angina pectoris; I25.2 Old myocardial infarction; E11.9 Type 2 diabetes mellitus without complications; E78.5 Hyperlipidemia, unspecified; F17.210 Nicotine dependence, cigarettes, uncomplicated; Z95.1 Presence of aortocoronary bypass graft; Z88.5 Allergy status to narcotic agent; Z79.82 Long term (current) use of aspirin; Z79.84 Long term (current) use of oral hypoglycemic drugs; Z79.899 Other long term (current) drug therapy; Z59.89 Other problems related to housing and economic circumstances
CPT/HCPCS: 71046; 80053; 83880; 84484; 85025; 93005; 93010; 96374; 99285-25; J1938

== ENCOUNTER 2025-01-27 16:25 | Emergency (ER) | payer MEDICARE ==
[~2025-01-27] VITALS: Ht 175.3 cm; Wt 77.1 kg
[~2025-01-27 16:25] MED LIST changes: +TORSE20 PO
[2025-01-27 17:09] LABS: BASOPHILS ABSOLUTE AUTO 0.04 K/mm3 (0.00-0.23); BASOPHILS PERCENT AUTO 1 % (0-2); EOSINOPHILS ABSOLUTE AUTO 0.09 K/mm3 (0.00-0.68); EOSINOPHILS PERCENT AUTO 1 % (0-6); Hematocrit 40.1 % (37.0-53.0); Hemoglobin 12.9 g/dL (13.5-17.5); IMMATURE GRAN ABSOLUTE AUTO 0.02 K/mm3 (0.00-0.10); IMMATURE GRAN PERCENT AUTO 0 % (0-1); LYMPHOCYTES ABSOLUTE AUTO 1.22 K/mm3 (0.84-5.20); LYMPHOCYTES PERCENT AUTO 15 % (21-46); MONOCYTES ABSOLUTE AUTO 0.99 K/mm3 (0.16-1.47); MONOCYTES PERCENT AUTO 12 % (4-13); Mean Corpuscular HGB Conc 32.2 g/dL (31.5-36.5); Mean Corpuscular Volume 90 fL (80-100); NEUTROPHILS ABSOLUTE AUTO 5.61 K/mm3 (1.96-9.15); NEUTROPHILS PERCENT AUTO 70 % (41-73); NRBC ABSOLUTE 0.00 K/mm3 (0.00-0.02); NRBC Auto 0.0 /100 WBC (0.0-0.2); Platelet Count 186 K/mm3 (150-400); RDW Coefficient Variation 17.8 % (11.7-14.2); RDW Standard Deviation 58.2 fL (35.1-46.3)
[2025-01-27 17:36] LABS: Alanine Aminotransfer (ALT/SGP 256.0 U/L (12-78); Albumin, Blood 2.9 g/dL (3.4-5.0); Albumin/Globulin Ratio 0.8 (0.8-1.8); Anion Gap 8.0 mmol/L (3-11); Aspartate Aminotrans (AST/SGOT 154.0 U/L (12-37); Bilirubin, Total 1.2 mg/dL (0.1-1.0); Blood Urea Nitrogen 34.0 mg/dL (8-24); CO2, Blood 31.0 mmol/L (21-32); Calcium, Blood 9.0 mg/dL (8.5-10.1); Chloride, Blood 99.0 mmol/L (98-108); Creatinine, Blood 1.06 mg/dL (0.60-1.20); Globulin, Blood 3.7 g/dL (2.2-4.0); Glucose, Blood 166.0 mg/dL (70-99); Potassium, Blood 3.6 mmol/L (3.5-5.5); Sodium, Blood 134.0 mmol/L (136-145); Total Protein, Blood 6.6 g/dL (6.4-8.2)
[2025-01-27 22:46] VITALS: BP 108/60
[2025-01-27] MEDS ORDERED: CefTRIAXone Sodium 1,000 MG in NS 50 ML IV ONE (23:00)
[2025-01-27] MEDS ORDERED: Furosemide 10 MG / ML 2ML Vial IV ONE (23:00)
[2025-01-27] MEDS ORDERED: CEPH500 PO (23:05)
== END 2025-01-27 23:45 | disposition home or self-care (01) ==
LOC: ER 16:25
PROVIDERS: Student in an Organized Health Care Education/Training Program
DX: L03.116 Cellulitis of left lower limb (principal); L03.115 Cellulitis of right lower limb; Z23 Encounter for immunization; F17.200 Nicotine dependence, unspecified, uncomplicated; Z79.82 Long term (current) use of aspirin; Z79.899 Other long term (current) drug therapy; Z88.5 Allergy status to narcotic agent
CPT/HCPCS: 71046; 80053; 83690; 83880; 84484; 85025; 85379; 90471; 90715; 93005; 93010; 96374; 96375; 99284-25; J0696; J1938

== ENCOUNTER 2025-03-25 00:31 | Day surgery (SDC) | payer MEDICARE ==
[~2025-03-25 00:31] MED LIST changes: +CEPH500 PO
[2025-03-25] MEDS ORDERED: Lidocaine HCl 4% Cream 5 GM ONE (07:52)
== END 2025-03-25 23:00 | disposition home or self-care (01) ==
LOC: WOUND 00:31
DX: E11.622 Type 2 diabetes mellitus with other skin ulcer (principal); L97.823 Non-pressure chronic ulcer of other part of left lower leg with necrosis of muscle; L97.812 Non-pressure chronic ulcer of other part of right lower leg with fat layer exposed; I11.0 Hypertensive heart disease with heart failure; I50.9 Heart failure, unspecified; E11.51 Type 2 diabetes mellitus with diabetic peripheral angiopathy without gangrene; I87.2 Venous insufficiency (chronic) (peripheral)
CPT/HCPCS: A9270; G0463

== ENCOUNTER 2025-03-31 00:54 | Day surgery (SDC) | payer MEDICARE ==
[2025-03-31] MEDS ORDERED: Lidocaine HCl 4% Cream 5 GM ONE (13:41)
== END 2025-03-31 23:00 | disposition home or self-care (01) ==
LOC: WOUND 00:54
DX: E11.622 Type 2 diabetes mellitus with other skin ulcer (principal); L97.823 Non-pressure chronic ulcer of other part of left lower leg with necrosis of muscle; L97.812 Non-pressure chronic ulcer of other part of right lower leg with fat layer exposed; E11.51 Type 2 diabetes mellitus with diabetic peripheral angiopathy without gangrene; I87.2 Venous insufficiency (chronic) (peripheral); I11.0 Hypertensive heart disease with heart failure; I50.9 Heart failure, unspecified
CPT/HCPCS: A9270; G0463

== ENCOUNTER 2025-04-08 09:51 | Day surgery (SDC) | payer MEDICARE ==
[2025-04-08] MEDS ORDERED: Lidocaine HCl 4% Cream 5 GM ONE (14:04)
== END 2025-04-08 23:00 | disposition home or self-care (01) ==
LOC: WOUND 09:51
DX: E11.622 Type 2 diabetes mellitus with other skin ulcer (principal); L97.823 Non-pressure chronic ulcer of other part of left lower leg with necrosis of muscle; L97.812 Non-pressure chronic ulcer of other part of right lower leg with fat layer exposed; E11.51 Type 2 diabetes mellitus with diabetic peripheral angiopathy without gangrene; I87.2 Venous insufficiency (chronic) (peripheral); I11.0 Hypertensive heart disease with heart failure; I50.9 Heart failure, unspecified
CPT/HCPCS: A9270